=== PATIENT | male | born 1995 | race Two or more races ===

== ENCOUNTER 2021-03-26 13:35 | Inpatient (IN) | payer SELFPAY ==
[~2021-03-26] VITALS: Ht 160 cm; Wt 54.9 kg
[2021-03-26] MEDS ORDERED: PANTOPRAZOLE SODIUM 40 MG VIAL IV ONE (14:00)
[2021-03-26] MEDS ORDERED: LORAZEPAM 2 MG/1 ML VIAL IV ONE (14:00)
[2021-03-26] MEDS ORDERED: IV NORMAL SALINE 1000 ML BAG IV ONE ×2 (14:00→14:15)
[2021-03-26] MEDS ORDERED: PANTOPRAZOLE SODIUM 40 MG VIAL ONE (14:10)
[2021-03-26] MEDS ORDERED: LORAZEPAM 2 MG/1 ML VIAL ONE (14:11)
[2021-03-26 14:18] LABS: CARBON DIOXIDE 25 mmol/L (21-32); CHLORIDE 101 mmol/L (98-107); GLUCOSE 132 mg/dL (74-106); POTASSIUM 3.3 mmol/L (3.5-5.1); UREA NITROGEN, BLOOD 8 mg/dL (7-18)
[2021-03-26 14:19] LABS: CREATININE 0.7 mg/dL (0.6-1.3)
[2021-03-26 14:20] LABS: BASOPHILS # (AUTO) 0.1 K/uL (0.0-8.0); BASOPHILS % (AUTO) 1.9 % (0.0-2.0); EOSINOPHILS % (AUTO) 0.6 % (0.0-7.0); HEMATOCRIT 37.1 % (36.7-47.1); HEMOGLOBIN 12.6 g/dL (12.5-16.3); LYMPHOCYTES # (AUTO) 1.5 K/uL (20.0-40.0); LYMPHOCYTES % (AUTO) 30.2 % (20.5-51.5); MEAN CORPUSCULAR HGB CONC 34 g/dL (32.5-36.3); MEAN CORPUSCULAR VOLUME 88.2 fL (73.0-96.2); MONOCYTES # (AUTO) 0.2 K/uL (2.0-10.0); MONOCYTES % (AUTO) 4.2 % (0.0-11.0); NEUTROPHILS # (AUTO) 3.2 K/uL (1.8-8.9); NEUTROPHILS % (AUTO) 63.1 % (38.5-71.5); PLATELET COUNT (AUTO) 146 K/uL (152-348); RED BLOOD CELL COUNT(AUTO) 4.21 MIL/uL (4.06-5.63); WHITE BLOOD COUNT (AUTO) 5.1 K/uL (3.6-10.2)
[2021-03-26 14:24] LABS: ALANINE AMINOTRANSFERASE 96 U/L (16-63); ALKALINE PHOSPHATASE 265 U/L (50-136); ASPARTATE AMINOTRANSFERASE 103 U/L (15-37); BILIRUBIN,DIRECT 0.1 mg/dL (0.0-0.2); BILIRUBIN,TOTAL 0.4 mg/dL (0.2-1.0); LIPASE 17 U/L (73-393); TOTAL PROTEIN, SERUM 7.4 g/dL (6.4-8.2)
[2021-03-26 14:38] LABS: *BILIRUBIN,URIN NEGATIVE (NEGATIVE); *BLOOD, URINE NEGATIVE (NEGATIVE); *CLARITY,URINE CLEAR (CLEAR); *COLOR,URINE LIGHT YELLOW (YELLOW); *KETONES,URINE NEGATIVE (NEGATIVE); *UROBILINOGEN,URINE 0.2 E.U./dl (NORMAL); LEUKOCYTE ESTERASE ,URINE NEGATIVE (NEGATIVE); NITRITE, URINE NEGATIVE (NEGATIVE); PH,URINE 6.5 (5.0-8.0); UGLUCOSE NEGATIVE (NEGATIVE)
--- NOTE | 2021-03-26 14:52 | NUR ---
Patient is resting comfortably on gurney with eyes closed, easily arousable with voice, moves all extremities, calm & cooperative.
--- NOTE | 2021-03-26 19:00 | NUR ---
Received patient at this time - resting in bed.
--- NOTE | 2021-03-26 19:49 | NUR ---
Head to toe assessment complete - no signs of trauma.
[2021-03-26] MEDS ORDERED: FOLIC ACID 5 MG/ML VIAL IV ONE (20:00)
[2021-03-26] MEDS ORDERED: POTASSIUM CHLORIDE 20 MEQ POWDER PACKET GT ONE (20:00)
[2021-03-26] MEDS ORDERED: THIAMINE HCL 200 MG/2 ML VIAL IV ONE (20:00)
[2021-03-26] MEDS ORDERED: IV LACTATED RINGERS SOLUTION 1,000 ML IV ONE ×2 (20:00)
[2021-03-26 20:15] LABS: *AMPHETAMINE, URINE NEGATIVE (NEGATIVE); *CANNABINOID, URINE NEGATIVE (NEGATIVE); *COCCAINE, URINE NEGATIVE (NEGATIVE); *OPIATE, URINE NEGATIVE (NEGATIVE); *PHENCYCLIDINE SCREEN,URINE NEGATIVE (NEGATIVE)
[2021-03-26] MEDS: MAGNESIUM SULFATE/D5W 100 ML IV SCH ×2 (20:38→21:41)
--- NOTE | 2021-03-26 20:49 | NUR ---
Patient in bed. No distress. Safety measures in place.
--- NOTE | 2021-03-26 23:19 | NUR ---
Patient in bed. No distress. Safety measures in place.
--- NOTE | 2021-03-26 23:55 | NUR ---
Patient had episode of Tachycardia with HR in the 170s. P-waves were present to me - possibly sinus. Dr. Lyon made aware.
--- NOTE | 2021-03-27 | NUR ---
Patient to remain here in ED for observation for now - per Matthew Nava
[2021-03-27 01:23] LABS: CARBON DIOXIDE 23 mmol/L (21-32); CHLORIDE 103 mmol/L (98-107); CREATININE 0.7 mg/dL (0.6-1.3); GLUCOSE 98 mg/dL (74-106); MAGNESIUM 2.4 mg/dL (1.8-2.4); POTASSIUM 3.7 mmol/L (3.5-5.1); UREA NITROGEN, BLOOD 6 mg/dL (7-18)
[2021-03-27] MEDS ORDERED: CHLORDIAZEPOXIDE HCL 25 MG CAPSULE PO ONE (05:30)
--- NOTE | 2021-03-27 06:30 | NUR ---
Patient trasferred to Room 302 in stable condition. VSS. All belongings with patient.
--- NOTE | 2021-03-27 06:30 | NUR ---
Admitted a 25 y.o male to telemetry with an admitting diagnosis of ETOH withdrawal. Transferred to bed, repositioned comfortably, side rails up, bed locked and in low position. Pt is A&OX4, Turkish speaking, able to make needs known. Pt is shaky, verbalized he feels generalized pain of 8/10. Sinus tachy on tele at 113/min. IV access intact and patent. Safety measures in place, call light within reach, will endorse to incoming nurse.
[2021-03-27] MEDS ORDERED: ONDANSETRON 4 MG/2 ML VIAL IV PRN (06:45)
[2021-03-27] MEDS ORDERED: THIAMINE HCL INJ 200 MG in IV DEXTROSE 5% 50 ML IV SCH ×2 (06:45→20:00)
[2021-03-27] MEDS ORDERED: IV LACTATED RINGERS SOLUTION 1,000 ML IV PRN (06:45)
[2021-03-27] MEDS ORDERED: MAGNESIUM HYDROXIDE 30 ML LIQUID UDC PO PRN (06:45)
[2021-03-27 06:56] VITALS: BP 155/92
--- NOTE | 2021-03-27 07:30 | NUR ---
PATIENT RECEIVED IN BED WITH EYES OPEN, AWAKE AND ALERT. PATIENT HAS TWO IV SITES, ONE 18G ON THE LEFT HAND AND ONE 18G ON THE LEFT FOREARM. BOTH ARE PATENT WITH NO REDNESS OF SIGNS OF INFILTRATION. PATIENT DENIES ANY PAIN OR DISCOMFORTS AT THIS TIME. PATIENT ON RA WITH NO SOB OR DIFFICULTIES BREATHING. BED ALARM ON. PERSONAL BELONGINGS AND CALL LIGHT WITHIN EASY REACH. WILL CONTINUE TO MONITOR.
[2021-03-27] MEDS: FOLIC ACID 1 MG TABLET PO SCH (08:14)
[2021-03-27] MEDS: MULTIVITAMINS,THERAPEUTIC TABLET PO SCH (08:14)
[2021-03-27] MEDS: LORAZEPAM 2 MG/1 ML VIAL IV PRN ×4 (08:14→22:15)
[2021-03-27] MEDS: IV NS 1000 ML 1,000 ML IV PRN ×2 (08:47→18:18)
[2021-03-27 12:49] VITALS: BP 128/81
--- NOTE | 2021-03-27 15:15 | NUR ---
Automation Qa Tester Consultation: Automation Qa Tester consultation requested for alcoholism. Per ED physician's note, patient was brought in by ambulance county auditor on 03/27/21 after patient was found in front of a liquor store complaining of palpitations. A bystander had called 911. This RN RADIATION met with the patient in his hospital room. Patient is a 25 year old male, awake, oriented x 3-4, receptive to meeting with this RN RADIATION. Patient stated that he was feeling "bad" and kept his eyes mostly closed throughout this interview, but was still cooperative with responding to this RN RADIATION's questions. Patient is predominantly Bulgarian-speaking. Patient reports that the reason for his hospitalization is that he "drank alot of alcohol and fell down". Patient states he lives with a friend, Leno, at [id number], [place], [place]. Patient states he is independent with his ADL's and works as a advanced registered nurse 3 x week. Patient identifying his brother Kd Kimball as his emergency contact, . Patient reports a 12 year history of drinking, stating that he started drinking at the age of 12. Patient stated that he currently drinks 1 bottle of tequila per day, along with some beer. Patient denied current use of any drugs, but stated previous use of crystal meth, with last usage about 3 months ago. Patient denied smoking cigarettes. Patient denied mental illness. Patient stated he does not have health insurance, and therefore patient was referred to Patient Cafeteria Server to screen for [facility] eligibility. Patient stated he has not been in substance abuse treatment programs in the past, and this RN RADIATION offered patient resources on substance abuse treatment programs. Patient was receptive to these resources, which this RN RADIATION will provide. Discharge plans discussed with the patient, and patient stated that he plans to return home when discharged. Plan: This RN RADIATION to provide patient with resources for substance abuse treatment programs. No further SS interventions needed at this time, however social media sr strategy manager will remain available, as needed.
[2021-03-27 16:00] VITALS: BP 126/81
--- NOTE | 2021-03-27 16:06 | NUR ---
Marking Stitcher Note: This PRIVATE EYE met with the patient and provided him with the following resources on substance abuse treatment programs: [facility] Substance Abuse Self-helpline ([facility]): . [facility] [address] [facility]. [place] [address] [facility] [address] [facility] [place] [address] [facility] ([facility]) [address] [place] [address] [facility] (No insurance required) [address] [place] , [place] [id number] [facility] [address] [facility]. [facility] [address] [facility] [phone] [address] [facility]. [facility] [address]
--- NOTE | 2021-03-27 18:41 | NUR ---
PATIENT ATE ALL OF HIS DINNER AND IS IN BED WITH EYES CLOSED. PATIENT CONTINUES TO STAY SR ON TELE, HR 74. PATIENT HAS IVF NS AT 100 ML/H RUNNING ORDERED. CALL LIGHT AND PERSONAL BELONGINGS WITHIN EASY REACH. WILL CONTINUE TO MONITOR.
--- NOTE | 2021-03-27 19:30 | NUR ---
RECEIVED PT AWAKE, ALERT AND ORIENTEDEX4. PT IN NO ACUTE DISTRESS. IV INTACT. SAFETY AND COMFORT PROVIDED. WILL CONTINUE TO MONITOR.
[2021-03-27 20:00] VITALS: BP 138/88
[2021-03-27] MEDS: ACETAMINOPHEN 325 MG TABLET PO PRN (22:14)
--- NOTE | 2021-03-27 23:15 | NUR ---
PT GIVEN ATIVAN PRN AT 2215H FOR RESTLESSNESS. PT TOLERATED IT WELL. AFTER AN HOUR PT MORE CALMER. PT VITAL SIGNS STABLE. SAFETY AND COMFORT PROVIDED. WILL CONTINUE TO MONITOR.
[2021-03-28] VITALS: BP 135/88
[2021-03-28 04:51] VITALS: BP 137/79
[2021-03-28] MEDS: IV NS 1000 ML 1,000 ML IV PRN (05:39)
--- NOTE | 2021-03-28 06:20 | NUR ---
PT SLEPT INTERMITTENTLY. PT IN NO ACUTE DISTRESS. IV INTACT. PRESCRIBED MEDICATION GIVEN AND PT TOLERATED IT WELL. SAFETY AND COMFORT PROVIDED.ALL NEEDS ARE MET. WILL ENDORSE TO INCOMING NURSE FOR CONTINUITY OF CARE.
[2021-03-28 06:25] LABS: BASOPHILS % (AUTO) 0.5 % (0.0-2.0); EOSINOPHILS # (AUTO) 0.1 K/uL (0.0-0.7); HEMATOCRIT 36.1 % (36.7-47.1); HEMOGLOBIN 12.3 g/dL (12.5-16.3); LYMPHOCYTES % (AUTO) 19.7 % (20.5-51.5); MEAN CORPUSCULAR HEMOGLOBIN 30.8 uug (23.8-33.4); MEAN CORPUSCULAR HGB CONC 34 g/dL (32.5-36.3); MEAN CORPUSCULAR VOLUME 90.3 fL (73.0-96.2); MONOCYTES # (AUTO) 0.3 K/uL (2.0-10.0); MONOCYTES % (AUTO) 5.6 % (0.0-11.0); NEUTROPHILS # (AUTO) 3.7 K/uL (1.8-8.9); NEUTROPHILS % (AUTO) 72.2 % (38.5-71.5); PLATELET COUNT (AUTO) 90 K/uL (152-348); WHITE BLOOD COUNT (AUTO) 5.1 K/uL (3.6-10.2)
[2021-03-28 06:35] LABS: CARBON DIOXIDE 26 mmol/L (21-32); CHLORIDE 102 mmol/L (98-107); CHOLESTEROL 214 mg/dL (<200); CREATININE 0.6 mg/dL (0.6-1.3); GLUCOSE 108 mg/dL (74-106); HDL CHOLESTEROL 87 mg/dL (40-60); MAGNESIUM 2.2 mg/dL (1.8-2.4); PHOSPHOROUS 3.3 mg/dL (2.5-4.9); POTASSIUM 3.5 mmol/L (3.5-5.1); TRIGLYCERIDES 176 MG/DL (30-150); UREA NITROGEN, BLOOD 6 mg/dL (7-18)
[2021-03-28 06:58] LABS: EOSINOPHILS % (MANUAL) 3 % (0-8); LYMPHOCYTES % (MANUAL) 15 % (20-40); MONOCYTES % (MANUAL) 5 % (2-10); NEUTROPHILS % (MANUAL) 77 % (42-75)
--- NOTE | 2021-03-28 07:30 | NUR ---
PATIENT RECEIVED IN BED WITH EYES OPEN, ALERT AND ORIENTED. BOTH LEFT HAND AND LEFT FOREARM IV SITES WERE PATENT WITH NO REDNESS OR SWELLING. IVF RUNNING NS AT 100 ML/H ORDERED. PATIENT STATES HE HAS A BIT OF PAIN IN HIS BACK AND WAS GIVEN ACETAMINOPHEN ORDERED. HE STATES HE HAS NO OTHER DISCOMFORTS AT THIS TIME. PATIENT IS ON RA WITH NO SOB OR DIFFICULTIES BREATHING AND CONTINUES TO REMAIN SR ON TELE. FALL PRECAUTIONS ARE IN PLACE. PERSONAL BELONGINGS AND CALL LIGHT WITHIN EASY REACH.
[2021-03-28] MEDS: FOLIC ACID 1 MG TABLET PO SCH (08:01)
[2021-03-28] MEDS: ACETAMINOPHEN 325 MG TABLET PO PRN (08:01)
[2021-03-28] MEDS: MULTIVITAMINS,THERAPEUTIC TABLET PO SCH (08:01)
[2021-03-28] MEDS ORDERED: THIAMINE HCL 100 MG TABLET PO SCH (09:00)
--- NOTE | 2021-03-28 12:00 | NUR ---
PATIENT WAS DISCHARGED AND TAKEN DOWNSTAIRS VIA WHEELCHAIR AND PICKED UP BY A FRIEND WITH ALL HIS PERSONAL BELONGINGS. PATIENT WAS INSTRUCTED TO FOLLOW UP WITH PRIMARY CARE PROVIDER IN ONE WEEK AND TO FOLLOW UP WITH REHAB/DETOX. ALL INFORMATION WAS GIVEN TO HIM AND HE EXPRESSED UNDERSTANDING. PATIENT WAS DISCHARGED IN SATISFACTORY CONDITION.
== END 2021-03-28 12:00 | disposition home or self-care (01) | DRG 897 ==
LOC: ER 13:35 → TELE3 03-27 06:15
PROVIDERS: ADMIT Family Medicine; ATTEND Family Medicine
DX: F10.121 Alcohol abuse with intoxication delirium (principal); K21.00 Gastro-esophageal reflux disease with esophagitis, without bleeding; R07.89 Other chest pain; R00.0 Tachycardia, unspecified; Y90.8 Blood alcohol level of 240 mg/100 ml or more; Z59.0 Homelessness; E86.0 Dehydration; Z20.822 Contact with and (suspected) exposure to COVID-19; D69.59 Other secondary thrombocytopenia
CPT/HCPCS: 36415; 70030-TC; 71045; 83690; 83735; 84100; 85025; 85730; 93005; A4663; C9113; G0378; G0480; J2060; J2405; J3411; J3475; J3490; J7030; J7060; J7120

== ENCOUNTER 2021-04-04 01:56 | Inpatient (IN) | payer SELFPAY ==
[~2021-04-04] VITALS: Ht 167.6 cm; Wt 64.4 kg
--- NOTE | 2021-04-04 01:59 | NUR ---
Patient unable to answer many of the triage questions due to intoxicated state. Information unable to be obtained marked as "unknown."
[2021-04-04] MEDS ORDERED: LIDOCAINE 2% (UROJET) 10 ML JELLY MM ONE ×2 (02:00→02:39)
[2021-04-04] MEDS ORDERED: IV D5/ 0.9% NACL 1,000 ML IV ONE (02:15)
[2021-04-04 02:22] LABS: BASOPHILS # (AUTO) 0.1 K/uL (0.0-8.0); BASOPHILS % (AUTO) 2.9 % (0.0-2.0); CARBON DIOXIDE 28 mmol/L (21-32); CHLORIDE 104 mmol/L (98-107); CREATININE 0.7 mg/dL (0.6-1.3); EOSINOPHILS % (AUTO) 1.3 % (0.0-7.0); GLUCOSE 113 mg/dL (74-106); HEMATOCRIT 36.5 % (36.7-47.1); HEMOGLOBIN 12.3 g/dL (12.5-16.3); LYMPHOCYTES # (AUTO) 1.4 K/uL (20.0-40.0); LYMPHOCYTES % (AUTO) 37.4 % (20.5-51.5); MEAN CORPUSCULAR HEMOGLOBIN 30.4 uug (23.8-33.4); MEAN CORPUSCULAR HGB CONC 34 g/dL (32.5-36.3); MONOCYTES # (AUTO) 0.3 K/uL (2.0-10.0); MONOCYTES % (AUTO) 8.2 % (0.0-11.0); NEUTROPHILS # (AUTO) 1.9 K/uL (1.8-8.9); NEUTROPHILS % (AUTO) 50.2 % (38.5-71.5); PLATELET COUNT (AUTO) 241 K/uL (152-348); POTASSIUM 3.5 mmol/L (3.5-5.1); RED BLOOD CELL COUNT(AUTO) 4.05 MIL/uL (4.06-5.63); UREA NITROGEN, BLOOD 7 mg/dL (7-18); WHITE BLOOD COUNT (AUTO) 3.8 K/uL (3.6-10.2)
[2021-04-04 02:26] LABS: ETHANOL 551 MG/DL (0-0)
[2021-04-04 02:27] LABS: ALANINE AMINOTRANSFERASE 100 U/L (16-63); ALKALINE PHOSPHATASE 321 U/L (50-136); ASPARTATE AMINOTRANSFERASE 154 U/L (15-37); BILIRUBIN,DIRECT 0.1 mg/dL (0.0-0.2); BILIRUBIN,TOTAL 0.3 mg/dL (0.2-1.0); TOTAL PROTEIN, SERUM 7.7 g/dL (6.4-8.2)
--- NOTE | 2021-04-04 02:34 | NUR ---
electrical mechanical technicianmoe Cook called to inform blood alcohol results of patient to be 0.55. Venu Richards MD notified. No pending orders in regard to this at this time.
[2021-04-04 02:35] LABS: THYROID STIMULATING HORMONE 2.266 mIU/mL (0.358-3.740)
[2021-04-04 02:37] LABS: ACETAMINOPHEN < 2.0 ug/mL (10-30)
--- NOTE | 2021-04-04 03:13 | NUR ---
Xray at bedside.
[2021-04-04 03:27] LABS: *AMPHETAMINE, URINE NEGATIVE (NEGATIVE); *CANNABINOID, URINE NEGATIVE (NEGATIVE); *COCCAINE, URINE NEGATIVE (NEGATIVE); *OPIATE, URINE NEGATIVE (NEGATIVE); *PHENCYCLIDINE SCREEN,URINE NEGATIVE (NEGATIVE)
[2021-04-04 03:31] LABS: *BILIRUBIN,URIN NEGATIVE (NEGATIVE); *BLOOD, URINE NEGATIVE (NEGATIVE); *CLARITY,URINE CLEAR (CLEAR); *COLOR,URINE YELLOW (YELLOW); *KETONES,URINE NEGATIVE (NEGATIVE); *UROBILINOGEN,URINE 0.2 E.U./dl (NORMAL); LEUKOCYTE ESTERASE ,URINE NEGATIVE (NEGATIVE); NITRITE, URINE NEGATIVE (NEGATIVE); UGLUCOSE NEGATIVE (NEGATIVE)
--- NOTE | 2021-04-04 04:34 | NUR ---
Patient is resting comfortably in bed with eyes closed. Bed in lowest position, HOB elevated.
--- NOTE | 2021-04-04 06:17 | NUR ---
Patient is resting comfortably in bed with eyes closed, arousable with voice and tactile stimuli.
--- NOTE | 2021-04-04 07:21 | NUR ---
received patient at change of shift, noted resting in bed, no signs of acute distress, vitals WNL
--- NOTE | 2021-04-04 09:30 | NUR ---
Patient noted using urinal at this time, no signs of distress notes
--- NOTE | 2021-04-04 11:52 | NUR ---
Art from crisis team called to evaluate patient, Art states that because patient's alcohol level is 340 he would not be able to evaluate him until it reached 100
--- NOTE | 2021-04-04 11:53 | NUR ---
Tito called at this time for delinquency prevention social worker, awaiting returned call
--- NOTE | 2021-04-04 11:54 | NUR ---
Patient noted watching tv at this time, able to ambulate with steady gait, states he still feels like hurting himself
--- NOTE | 2021-04-04 19:05 | NUR ---
Received report from SCAR Landrum. Responsive to verbal and tactile stimuli. Bed in lowest position for safety precautions.
[2021-04-04] MEDS ORDERED: CHLORDIAZEPOXIDE HCL 25 MG CAPSULE PO ONE (22:30)
[2021-04-04] MEDS ORDERED: CHLORDIAZEPOXIDE HCL 25 MG CAPSULE ONE (23:07)
--- NOTE | 2021-04-04 23:45 | NUR ---
Patient is resting comfortably in bed with eyes closed, bed in lowest postion for safety precautions.
--- NOTE | 2021-04-05 03:29 | NUR ---
Patient is noted using the urinal at this time, no signs of distress noted. No SOB or labored breathing. No c/o pain/discomfort. Bed in lowest position.
--- NOTE | 2021-04-05 06:47 | NUR ---
Pt resting comfortably in bed, no SOB or labored breathing. afebrile. No c/o pain/discomfort. Bed in lowest position.
--- NOTE | 2021-04-05 07:27 | NUR ---
Patient is admitted, pending callback from 3rd floor nurse Daniela to call ER for hands off report.
--- NOTE | 2021-04-05 08:15 | NUR ---
Patient is eating breakfast with good appetite.
[2021-04-05 08:31] VITALS: BP 136/80
--- NOTE | 2021-04-05 08:50 | NUR ---
Patient was brought to the floor via gurney from the ER. Patient is sitting at the edge of the bed and appear emotional. Comfort and encouragement was provided for the patient. Patient is alert and oriented x4 and states he has no pain or other discomforts at this time. Patient is on RA with no SOB or difficulties breathing. Patient has intermittent tremors. Right AC 18G HL is intact, patent with no redness or swelling noted at this time. All needs met. Call quintana and personal belongings within easy reach. Will continue to monitor.
--- NOTE | 2021-04-05 08:50 | NUR ---
PATIENT BROUGHT UP FROM ER VIA GURNEY. PATIENT IS SITTING AT THE EDGE OF BED, ALERT AND ORIENTED X4, APPEARS EMOTIONAL. ENCOURAGED PT TO EXPRESS FEELINGS AND PT MADE COMFORTABLE. SEIZURE AND ASPIRATION PRECAUTIONS IN PLACE. PT REFUSES SCDS AT THIS TIME AND WAS EDUCATED ON IMPORTANCE OF SCDS FOR DVT PREVENTION. RIGHT AC 18G PATENT WITH NO REDNESS OR SWELLING NOTED AT THIS TIME. PATIENT SR ON TELE WITH HR IN THE 80S. CALL LIGHT AND PERSONAL BELONGINGS WITHIN EASY REACH. WILL CONTINUE TO MONITOR.
[2021-04-05] MEDS ORDERED: MAGNESIUM HYDROXIDE 30 ML LIQUID UDC PO PRN (09:15)
[2021-04-05] MEDS: CHLORDIAZEPOXIDE HCL 25 MG CAPSULE PO SCH ×2 (09:48→16:25)
[2021-04-05] MEDS: ENOXAPARIN SODIUM 40 MG/0.4 ML DISP.SYRIN SQ SCH (09:48)
[2021-04-05] MEDS: IV 1/2NS 1000 ML 1,000 ML IV PRN ×2 (10:21→23:39)
[2021-04-05 10:37] LABS: CARBON DIOXIDE 23 mmol/L (21-32); CHLORIDE 97 mmol/L (98-107); CREATININE 0.6 mg/dL (0.6-1.3); GLUCOSE 202 mg/dL (74-106); MAGNESIUM 2.2 mg/dL (1.8-2.4); UREA NITROGEN, BLOOD 9 mg/dL (7-18)
[2021-04-05 10:39] LABS: BASOPHILS # (AUTO) 0.1 K/uL (0.0-8.0); BASOPHILS % (AUTO) 3.1 % (0.0-2.0); EOSINOPHILS # (AUTO) 0.1 K/uL (0.0-0.7); EOSINOPHILS % (AUTO) 1.6 % (0.0-7.0); HEMATOCRIT 35.3 % (36.7-47.1); HEMOGLOBIN 11.8 g/dL (12.5-16.3); LYMPHOCYTES # (AUTO) 0.6 K/uL (20.0-40.0); LYMPHOCYTES % (AUTO) 17.9 % (20.5-51.5); MEAN CORPUSCULAR HEMOGLOBIN 30.5 uug (23.8-33.4); MEAN CORPUSCULAR HGB CONC 33 g/dL (32.5-36.3); MEAN CORPUSCULAR VOLUME 91.2 fL (73.0-96.2); MONOCYTES # (AUTO) 0.4 K/uL (2.0-10.0); MONOCYTES % (AUTO) 10.4 % (0.0-11.0); NEUTROPHILS # (AUTO) 2.4 K/uL (1.8-8.9); PLATELET COUNT (AUTO) 210 K/uL (152-348); RED BLOOD CELL COUNT(AUTO) 3.87 MIL/uL (4.06-5.63); WHITE BLOOD COUNT (AUTO) 3.6 K/uL (3.6-10.2)
--- NOTE | 2021-04-05 13:12 | NUR ---
PATIENT EATING LUNCH IN BED AND STATES HE IS FEELING RESTLESS, ANXIOUS, AND TREMORS HAVE GOTTEN A BIT STRONGER. PATIENT ON TELE SHOWING SINUS TACH WITH HR OF 118 AT THIS TIME. ATIVAN ADMINISTERED ORDERED. WILL CONTINUE TO MONITOR.
[2021-04-05] MEDS: LORAZEPAM 2 MG/1 ML VIAL IV PRN ×2 (13:14→20:06)
[2021-04-05 16:00] VITALS: BP 124/84
--- NOTE | 2021-04-05 17:56 | NUR ---
Patient in bed with eyes closed, but easily arousable. Patient has IV acces on the right AC 18G that patent, with no redness or swelling, running IVF at 75 mL/h as ordered. Patient states he has no discomforts at this time. Call light and personal belongings within easy reach. Will continue to monitor.
[2021-04-05 20:00] VITALS: BP 132/80
--- NOTE | 2021-04-05 20:00 | NUR ---
RECD PT IN BED,APPEARS SLEEPING. NO ACUTE DISTRESS NOTED.IVF INFUSINF WELL TO RIGHT AC, NO COMPLAINTS PRESENTED.VITAL SIGNS TAKEN AND RECORDED.
[2021-04-06] VITALS (7 sets, daily range): BP systolic 101–134; BP diastolic 62–84
--- NOTE | 2021-04-06 00:15 | NUR ---
SLEPT AT LONG INTERVALS.VOIDED FREELY WELL.MONITORED FOR SAFETY.NOTHING UNUSUAL NOTED.
--- NOTE | 2021-04-06 00:18 | NUR ---
CONTINUES TO BE ON TELE SR/65-70..
--- NOTE | 2021-04-06 02:15 | NUR ---
PT. WOKE UP AND APPEARS RESTLESS ,COMPLAINED OF NAUSEA ,MEDICATED WITH ZOFRAN AND ATIVAN 1 MG ORDERED , HR WENT DOWN TO SINUS [id number], CONTINUE TO MONITOR.
[2021-04-06] MEDS: ONDANSETRON 4 MG/2 ML VIAL IV PRN (02:17)
[2021-04-06] MEDS: LORAZEPAM 2 MG/1 ML VIAL IV PRN ×3 (02:17→18:01)
--- NOTE | 2021-04-06 02:54 | NUR ---
FEELING BETTER,RESTING QUIETLY, KEPT WARM AND COMFORTABLE.
[2021-04-06] MEDS: PANTOPRAZOLE SODIUM 40 MG TABLET.DR PO SCH (06:15)
--- NOTE | 2021-04-06 07:30 | NUR ---
RESTING IN BED,IVF INFUSING WELL TO DESIRED RATE, ON TELE SINU SR/S/B 66-70.NO AGITATION AT THIS TIME.
[2021-04-06] MEDS: THIAMINE HCL 100 MG TABLET PO SCH (08:40)
[2021-04-06] MEDS: FOLIC ACID 1 MG TABLET PO SCH (08:40)
[2021-04-06] MEDS: CHLORDIAZEPOXIDE HCL 25 MG CAPSULE PO SCH ×3 (08:40→18:00)
[2021-04-06] MEDS: ENOXAPARIN SODIUM 40 MG/0.4 ML DISP.SYRIN SQ SCH (08:48)
--- NOTE | 2021-04-06 17:00 | NUR ---
SLEPT MOST OF THE DAY. TREMORS AND SHAKES ALL DAY WHEN AWAKE. MED PRN FOR WITHDRAWAL WITH GOOD EFFECT AFTER 30 MINS EACH TIME.
--- NOTE | 2021-04-06 19:30 | NUR ---
RECEIVED PT AWAKE,ALERT AND ORIENTEDX4. PT IN NO ACUTE DISTRESS. PT IV INTACT. SAFETY AND COMFORT PROVIDED. WILL CONTINUE TO MONITOR.
[2021-04-06] MEDS: ACETAMINOPHEN 325 MG TABLET PO PRN (19:44)
--- NOTE | 2021-04-06 19:44 | NUR ---
PT GIVEN TYLENOL PRN FOR HEADACHE. WILL CONTINUE TO MONITOR.
[2021-04-07 00:26] VITALS: BP 109/71
[2021-04-07] MEDS: IV 1/2NS 1000 ML 1,000 ML IV PRN ×2 (02:26→16:17)
[2021-04-07 04:55] VITALS: BP 107/62
[2021-04-07] MEDS: LORAZEPAM 2 MG/1 ML VIAL IV PRN ×2 (05:50→22:35)
--- NOTE | 2021-04-07 05:59 | NUR ---
Given Ativan 1mg prn for restlessness and mild anxiety. Pt tolerated it well. Will continue to monitor.
--- NOTE | 2021-04-07 06:04 | NUR ---
Pt slept intermittently. Prescribed medication given and pt tolerated it well. Safety and comfort provided. Will endorse to incoming nurse for continuity of care.
[2021-04-07] MEDS: PANTOPRAZOLE SODIUM 40 MG TABLET.DR PO SCH (06:05)
[2021-04-07 07:52] VITALS: BP 102/58
[2021-04-07] MEDS: THIAMINE HCL 100 MG TABLET PO SCH (08:19)
[2021-04-07] MEDS: FOLIC ACID 1 MG TABLET PO SCH (08:19)
[2021-04-07] MEDS: CHLORDIAZEPOXIDE HCL 25 MG CAPSULE PO SCH ×3 (08:19→16:21)
[2021-04-07] MEDS: ENOXAPARIN SODIUM 40 MG/0.4 ML DISP.SYRIN SQ SCH (08:20)
[2021-04-07 11:22] VITALS: BP 103/54
[2021-04-07 14:49] VITALS: BP 102/49
--- NOTE | 2021-04-07 15:48 | NUR ---
Hand Woodworking Sander Consultation: Hand Woodworking Sander consultation requested for alcoholism. Per ED physician's note, patient was brought in by ambulance on 04/04/2021. Patient was intoxicated during this ED visit. This COMPUTER SYSTEMS TECHNOLOGY INSTRUCTOR met with the patient in his hospital room. Patient is a 25 year old male, awake, oriented receptive to meeting with this COMPUTER SYSTEMS TECHNOLOGY INSTRUCTOR. Patient is known to this COMPUTER SYSTEMS TECHNOLOGY INSTRUCTOR from previous hospital admission earlier this month. Patient reports that he has continued to drink alcohol since returning home from previous hospitalization earlier this month, but could not provide a reason for this except that he sometimes feels lonely. COMPUTER SYSTEMS TECHNOLOGY INSTRUCTOR explored patients support system, and patient stated that he lives with his friend Leno, and that his siblings and extended family all live locally, however he doesnt see them on a daily basis and therefore that makes him feel lonely at times. Patient is predominantly Malay-speaking. Patient lives with a friend, Leno, [place] [address], [place], [place]. 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 Patient identified his brother Kd Kimball as his emergency contact, . Patient reported daily use of alcohol, drinking up to one bottle of tequila a day, along with several bottles of beer. In previous interview, patient reported a 12 year history of drinking. Patient denies current use of any drugs and cigarettes, although in previous interview patient reported hx of using meth. Currently, patients Medi-cruz application is pending. Patient denied mental illness. This COMPUTER SYSTEMS TECHNOLOGY INSTRUCTOR inquired about the substance abuse treatment program resources patient was provided with during previous hospitalization, and patient stated he still has the resources however has not used them. This COMPUTER SYSTEMS TECHNOLOGY INSTRUCTOR explored patients needs for additional community resources, and patient stated he did not need any other resources at this time. Discharge plans discussed with the patient, and patient stated that he plans to return home when discharged. Plan: Patient to return home after being discharged from the hospital. No further SS interventions needed at this time, however social worker palliative care will remain available, as needed.
--- NOTE | 2021-04-07 19:17 | NUR ---
Patient awake in bed, AOx3-4. On room air. With 1/2 NS running at 75cc/hr on Right AC gauge18. Patient denies pain/ discomfort. Patient compliant with medications and care. Safety measures provided. Needs met. Will endorse to incoming shift for continuity of care.
--- NOTE | 2021-04-07 19:30 | NUR ---
Received patient lying in bed. AAOx4. In no acute distress. Complained of mild stomach pain and nausea. Will provide Tylenol 650mg PRN per order and Zofran PRN per order. No anxiety noted. Calm, pleasant and cooperative. IV site on right AC intact and patent. IVF infusing. NSR on tele at 75/min. Needs assessed and attended to. Safety measure initiated and call quintana within reached.
[2021-04-07] MEDS: ONDANSETRON 4 MG/2 ML VIAL IV PRN (19:46)
[2021-04-07] MEDS: ACETAMINOPHEN 325 MG TABLET PO PRN (19:46)
[2021-04-07 20:00] VITALS: BP 105/60
[2021-04-08] VITALS: BP 104/57
[2021-04-08 04:00] VITALS: BP 107/63
[2021-04-08] MEDS: IV 1/2NS 1000 ML 1,000 ML IV PRN (05:39)
--- NOTE | 2021-04-08 05:56 | NUR ---
Slept well last night. AAOx4. Ativan 1mg x1 via IV given and effective. In no acute distress. No further complain of pain or nausea. IV site on right AC intact and patent. IVF infusing. NSR on tele at 64/min. Needs attended to and met. Safety measure maintained and call quintana within reached.
[2021-04-08] MEDS: PANTOPRAZOLE SODIUM 40 MG TABLET.DR PO SCH (06:04)
[2021-04-08 07:56] VITALS: BP 98/56
[2021-04-08] MEDS: CHLORDIAZEPOXIDE HCL 25 MG CAPSULE PO SCH ×2 (08:57→12:40)
[2021-04-08] MEDS: FOLIC ACID 1 MG TABLET PO SCH (08:58)
[2021-04-08] MEDS: THIAMINE HCL 100 MG TABLET PO SCH (08:58)
[2021-04-08] MEDS: ENOXAPARIN SODIUM 40 MG/0.4 ML DISP.SYRIN SQ SCH (08:59)
[2021-04-08 10:00] LABS: BILIRUBIN,DIRECT 0.1 mg/dL (0.0-0.2); BILIRUBIN,TOTAL 0.3 mg/dL (0.2-1.0); TOTAL PROTEIN, SERUM 7.2 g/dL (6.4-8.2)
[2021-04-08] MEDS ORDERED: THIA100T13 PO (10:54)
[2021-04-08] MEDS ORDERED: CHLO25CA22 PO (10:54)
[2021-04-08] MEDS ORDERED: FOLI1TAB94 PO (10:54)
--- NOTE | 2021-04-08 11:09 | NUR ---
Optometric Tech note: This LABORER STARCH FACTORY followed-up with the patient today. Patient is awake, alert, receptive to meeting with this LABORER STARCH FACTORY. LABORER STARCH FACTORY generated a discussion with patient about his mood, since he had mentioned that sometimes he feels lonely. Patient stated he did not feel lonely or sad at this time, however admitted to sometimes feeling lonely which causes him to drink. This LABORER STARCH FACTORY provided education on safe and unsafe self-care strategies, and offered patient resources for mental health agencies. Patient was receptive to these resources. This LABORER STARCH FACTORY provided patient with the following resources: 1) [facility] [address] [place], [place] [id number] 2) [facility] [address] [place] [address] 3) [facility] (Behavioral Health) [place], [place] [id number] 4) [facility] (Behavioral Health) [address] [facility], 2nd [place] [address] Main Number:
[2021-04-08 12:04] VITALS: BP 95/43
== END 2021-04-08 13:08 | disposition home or self-care (01) | DRG 896 ==
LOC: ER 01:58 → TELE3 04-05 08:22 → MEDSURG3 04-08 08:57
PROVIDERS: ADMIT Internal Medicine; ATTEND Nurse Practitioner Acute Care
DX: F10.239 Alcohol dependence with withdrawal, unspecified (principal); G92 Toxic encephalopathy; F10.229 Alcohol dependence with intoxication, unspecified; Y90.8 Blood alcohol level of 240 mg/100 ml or more; D63.8 Anemia in other chronic diseases classified elsewhere; E78.5 Hyperlipidemia, unspecified; Z59.0 Homelessness; R74.01 Elevation of levels of liver transaminase levels; Z20.822 Contact with and (suspected) exposure to COVID-19
CPT/HCPCS: 36415; 51702; 71045; 83735; 84100; 84443; 85025; 93005; C1758; G0378; G0480; J1650; J2060; J2405; J3490; J7042

== ENCOUNTER 2021-04-09 15:32 | Emergency (ER) | payer SELFPAY ==
[~2021-04-09] VITALS: Ht 170.2 cm; Wt 72.6 kg
[~2021-04-09 15:32] MED LIST: CHLO25CA22 PO; FOLI1TAB94 PO; THIA100T13 PO
--- NOTE | 2021-04-09 15:42 | NUR ---
Pt SOLITARIO AYOUB, reports pt is intoxicated, was just released from [facility] for same. Pt appears to be oriented x 1, obtunded.
[2021-04-09 16:13] LABS: *BILIRUBIN,URIN NEGATIVE (NEGATIVE); *BLOOD, URINE NEGATIVE (NEGATIVE); *CLARITY,URINE CLEAR (CLEAR); *COLOR,URINE LIGHT YELLOW (YELLOW); *KETONES,URINE NEGATIVE (NEGATIVE); *UROBILINOGEN,URINE 0.2 E.U./dl (NORMAL); LEUKOCYTE ESTERASE ,URINE NEGATIVE (NEGATIVE); NITRITE, URINE NEGATIVE (NEGATIVE); PH,URINE 5.5 (5.0-8.0); UGLUCOSE NEGATIVE (NEGATIVE)
[2021-04-09 16:14] LABS: BASOPHILS # (AUTO) 0.1 K/uL (0.0-8.0); BASOPHILS % (AUTO) 2.7 % (0.0-2.0); EOSINOPHILS # (AUTO) 0.1 K/uL (0.0-0.7); EOSINOPHILS % (AUTO) 1.2 % (0.0-7.0); HEMATOCRIT 34.4 % (36.7-47.1); HEMOGLOBIN 11.5 g/dL (12.5-16.3); LYMPHOCYTES # (AUTO) 1.1 K/uL (20.0-40.0); LYMPHOCYTES % (AUTO) 26.6 % (20.5-51.5); MEAN CORPUSCULAR HEMOGLOBIN 30.6 uug (23.8-33.4); MEAN CORPUSCULAR HGB CONC 34 g/dL (32.5-36.3); MEAN CORPUSCULAR VOLUME 91.5 fL (73.0-96.2); MONOCYTES # (AUTO) 0.4 K/uL (2.0-10.0); MONOCYTES % (AUTO) 9.2 % (0.0-11.0); NEUTROPHILS # (AUTO) 2.6 K/uL (1.8-8.9); NEUTROPHILS % (AUTO) 60.3 % (38.5-71.5); PLATELET COUNT (AUTO) 162 K/uL (152-348); RED BLOOD CELL COUNT(AUTO) 3.77 MIL/uL (4.06-5.63); WHITE BLOOD COUNT (AUTO) 4.3 K/uL (3.6-10.2)
[2021-04-09 16:15] LABS: CARBON DIOXIDE 24 mmol/L (21-32); CHLORIDE 109 mmol/L (98-107); CREATININE 0.6 mg/dL (0.6-1.3); GLUCOSE 115 mg/dL (74-106); POTASSIUM 3.7 mmol/L (3.5-5.1); UREA NITROGEN, BLOOD 4 mg/dL (7-18)
[2021-04-09 16:20] LABS: *AMPHETAMINE, URINE NEGATIVE (NEGATIVE); *CANNABINOID, URINE NEGATIVE (NEGATIVE); *COCCAINE, URINE NEGATIVE (NEGATIVE); *OPIATE, URINE NEGATIVE (NEGATIVE); *PHENCYCLIDINE SCREEN,URINE NEGATIVE (NEGATIVE)
[2021-04-09 16:22] LABS: ALANINE AMINOTRANSFERASE 119 U/L (16-63); ALKALINE PHOSPHATASE 237 U/L (50-136); ASPARTATE AMINOTRANSFERASE 101 U/L (15-37); BILIRUBIN,DIRECT 0.1 mg/dL (0.0-0.2); BILIRUBIN,TOTAL 0.2 mg/dL (0.2-1.0); TOTAL PROTEIN, SERUM 7.3 g/dL (6.4-8.2)
[2021-04-09 16:23] LABS: ACETAMINOPHEN < 2.0 ug/mL (10-30)
[2021-04-09 16:34] LABS: ETHANOL 383 MG/DL (0-0)
--- NOTE | 2021-04-09 18:52 | NUR ---
Pt resting in bed, no complaints, no distress noted. Pt states he is feeling better.
--- NOTE | 2021-04-09 19:10 | NUR ---
Patient c/o of 7/10 burning chest pain, non-radiating. EKG performed on patient, MD Roa made aware.
--- NOTE | 2021-04-09 20:18 | NUR ---
Patient attempting to leave, pulled off all v/s monitoring technology.
--- NOTE | 2021-04-09 20:27 | NUR ---
Patient does not wish to proceed with medical care recommended by Dr. Roa. Patient given information related to possible complications, up to and including , which could occur as a result of leaving the hospital at this time. Patient verbalizes understanding of risks involved due to leaving against medical advice. Patient has signed AMA form. Patient ambulates with steady gait, V/S stable, no IV access present on patient, left with all personal belongings.
== END 2021-04-09 20:27 | disposition left against medical advice (07) ==
LOC: ER 15:33
DX: F10.129 Alcohol abuse with intoxication, unspecified (principal); Y90.8 Blood alcohol level of 240 mg/100 ml or more; Z59.0 Homelessness; E87.0 Hyperosmolality and hypernatremia; R74.8 Abnormal levels of other serum enzymes; R74.01 Elevation of levels of liver transaminase levels
CPT/HCPCS: 36415; 85025; A4663; G0480

== ENCOUNTER 2021-04-10 17:36 | Emergency (ER) | payer SELFPAY ==
[~2021-04-10] VITALS: Ht 170.2 cm; Wt 72.6 kg
[2021-04-10] MEDS: IV NORMAL SALINE 1000 ML BAG IV ONE (17:58)
--- NOTE | 2021-04-10 18:10 | NUR ---
No information about pt's current medications available, pt unable to provide the information.
--- NOTE | 2021-04-10 18:24 | NUR ---
Urine collected and sent to LAB.
[2021-04-10 18:54] LABS: CARBON DIOXIDE 24 mmol/L (21-32); CHLORIDE 112 mmol/L (98-107); CREATININE 0.6 mg/dL (0.6-1.3); GLUCOSE 100 mg/dL (74-106); POTASSIUM 3.7 mmol/L (3.5-5.1); UREA NITROGEN, BLOOD 6 mg/dL (7-18)
[2021-04-10 18:56] LABS: *BILIRUBIN,URIN NEGATIVE (NEGATIVE); *BLOOD, URINE NEGATIVE (NEGATIVE); *CLARITY,URINE CLEAR (CLEAR); *COLOR,URINE LIGHT YELLOW (YELLOW); *KETONES,URINE NEGATIVE (NEGATIVE); *UROBILINOGEN,URINE 0.2 E.U./dl (NORMAL); LEUKOCYTE ESTERASE ,URINE NEGATIVE (NEGATIVE); NITRITE, URINE NEGATIVE (NEGATIVE); UGLUCOSE NEGATIVE (NEGATIVE)
[2021-04-10 18:57] LABS: BASOPHILS # (AUTO) 0.1 K/uL (0.0-8.0); BASOPHILS % (AUTO) 3.3 % (0.0-2.0); EOSINOPHILS # (AUTO) 0.1 K/uL (0.0-0.7); EOSINOPHILS % (AUTO) 1.8 % (0.0-7.0); HEMATOCRIT 33.7 % (36.7-47.1); LYMPHOCYTES # (AUTO) 1.2 K/uL (20.0-40.0); LYMPHOCYTES % (AUTO) 34.9 % (20.5-51.5); MEAN CORPUSCULAR HEMOGLOBIN 29.9 uug (23.8-33.4); MEAN CORPUSCULAR HGB CONC 33 g/dL (32.5-36.3); MEAN CORPUSCULAR VOLUME 91.3 fL (73.0-96.2); MONOCYTES # (AUTO) 0.3 K/uL (2.0-10.0); MONOCYTES % (AUTO) 7.3 % (0.0-11.0); NEUTROPHILS # (AUTO) 1.9 K/uL (1.8-8.9); NEUTROPHILS % (AUTO) 52.7 % (38.5-71.5); PLATELET COUNT (AUTO) 176 K/uL (152-348); RED BLOOD CELL COUNT(AUTO) 3.69 MIL/uL (4.06-5.63); WHITE BLOOD COUNT (AUTO) 3.6 K/uL (3.6-10.2)
[2021-04-10 19:07] LABS: ETHANOL 460 MG/DL (0-0)
[2021-04-10 19:10] LABS: *AMPHETAMINE, URINE NEGATIVE (NEGATIVE); *CANNABINOID, URINE NEGATIVE (NEGATIVE); *COCCAINE, URINE NEGATIVE (NEGATIVE); *OPIATE, URINE NEGATIVE (NEGATIVE); *PHENCYCLIDINE SCREEN,URINE NEGATIVE (NEGATIVE)
[2021-04-10 19:13] LABS: ALANINE AMINOTRANSFERASE 91 U/L (16-63); ALKALINE PHOSPHATASE 205 U/L (50-136); ASPARTATE AMINOTRANSFERASE 57 U/L (15-37); BILIRUBIN,DIRECT 0.1 mg/dL (0.0-0.2); BILIRUBIN,TOTAL 0.1 mg/dL (0.2-1.0); TOTAL PROTEIN, SERUM 6.7 g/dL (6.4-8.2)
[2021-04-10 19:14] LABS: ACETAMINOPHEN < 2.0 ug/mL (10-30)
[2021-04-10 19:23] LABS: THYROID STIMULATING HORMONE 0.599 mIU/mL (0.358-3.740)
--- NOTE | 2021-04-10 21:18 | NUR ---
Pt is asleep. Appears in no distress. Respirations even & unlabored.
--- NOTE | 2021-04-10 22:55 | NUR ---
IV removed. Catheter intact and site benign. Pressure and 4x4 gauze applied to site. No bleeding noted.
--- NOTE | 2021-04-10 23:13 | NUR ---
Patient woke up, walks with steady. Appears in no distress.
[2021-04-10 23:33] VITALS: BP 111/62
--- NOTE | 2021-04-10 23:33 | NUR ---
Patient is awake, alert, oriented x 3. Patient walks with steady gait and states he wants to leave. Offered patient food/drink but refused. Patient dressed appropriately. Patient given written and verbal discharge instructions. Patient verbalizes understanding of instructions. Patient is ambulatory with steady gait. Refuses offer of snf placement. Patient given list of available shelters in surrounding area.
== END 2021-04-10 23:39 | disposition home or self-care (01) ==
LOC: ER 17:37
DX: F10.129 Alcohol abuse with intoxication, unspecified (principal); Y90.8 Blood alcohol level of 240 mg/100 ml or more; Z79.899 Other long term (current) drug therapy; Z59.0 Homelessness
CPT/HCPCS: 36415; 70030-TC; 70450; 71045; 83605; 84443; 85025; 85730; 93005; A4663; G0480; J7030

== ENCOUNTER 2021-05-13 01:25 | Emergency (ER) | payer MEDICAID ==
[~2021-05-13] VITALS: Ht 165.1 cm; Wt 63.5 kg
--- NOTE | 2021-05-13 01:29 | NUR ---
Pt BIB [facility] 839 for ETOH. Pt is arousable to verbal and tactile stimuli. No SOB or labored breathing, afebrile.
--- NOTE | 2021-05-13 01:32 | NUR ---
Dr. Pelletier at bedside, MSE in progress.
[2021-05-13] MEDS ORDERED: IV NORMAL SALINE 1000 ML BAG IV ONE (01:45)
--- NOTE | 2021-05-13 01:48 | NUR ---
Pt taken down for CT.
[2021-05-13 02:19] LABS: HEMATOCRIT 36.9 % (36.7-47.1); MEAN CORPUSCULAR HEMOGLOBIN 30.1 uug (23.8-33.4); MEAN CORPUSCULAR VOLUME 91.2 fL (73.0-96.2); PLATELET COUNT (AUTO) 123 K/uL (152-348)
[2021-05-13 02:25] LABS: CARBON DIOXIDE 25 mmol/L (21-32); CHLORIDE 108 mmol/L (98-107); CREATININE 0.7 mg/dL (0.6-1.3); GLUCOSE 98 mg/dL (74-106); POTASSIUM 3.7 mmol/L (3.5-5.1); UREA NITROGEN, BLOOD 9 mg/dL (7-18)
[2021-05-13 02:28] LABS: ETHANOL 401 MG/DL (0-0)
[2021-05-13 02:31] LABS: ALANINE AMINOTRANSFERASE 163 U/L (16-63); ALKALINE PHOSPHATASE 376 U/L (50-136); ASPARTATE AMINOTRANSFERASE 155 U/L (15-37); BILIRUBIN,DIRECT 0.1 mg/dL (0.0-0.2); BILIRUBIN,TOTAL 0.2 mg/dL (0.2-1.0); TOTAL PROTEIN, SERUM 6.8 g/dL (6.4-8.2)
[2021-05-13 02:35] LABS: ACETAMINOPHEN < 2.0 ug/mL (10-30)
--- NOTE | 2021-05-13 03:48 | NUR ---
Patient is resting comfortably in bed with eyes closed.
--- NOTE | 2021-05-13 05:28 | NUR ---
Patient discharged to home in stable condition. A/O x3, no SOB or labored breathing. Afebrile. Denies any n/v/d. Written and verbal after care instructions given. Patient verbalizes understanding of instructions. Stressed follow up or return to ER for worsening s/s. Steady gait.
[2021-05-13 05:44] VITALS: BP 142/81
== END 2021-05-13 05:45 | disposition home or self-care (01) ==
LOC: ER 01:26
DX: F10.229 Alcohol dependence with intoxication, unspecified (principal); Y90.8 Blood alcohol level of 240 mg/100 ml or more; Z59.0 Homelessness
CPT/HCPCS: 36415; 70030-TC; 70450; 71045; 85025; A4663; C1758; G0480; J7030